=== PATIENT | male | born 1965 | race American Indian/Alaskan Native ===

== ENCOUNTER 2018-10-11 06:50 | Day surgery (SDC) | payer OTHER ==
[2018-10-11] MEDS ORDERED: ECOTRIN PO ONE (07:21)
[2018-10-11 07:41] LABS: Basophils # (Auto) 0.1 K/mm3 (0.0-0.1); Basophils % (Auto) 0.9 % (0.0-1.8); Eosinophils # (Auto) 0.1 K/mm3 (0.0-0.4); Eosinophils % (Auto) 1.1 % (0.0-4.3); Hematocrit 43.3 % (35.5-45.6); Hemoglobin 14.4 gm/dl (11.8-15.2); Lymphocytes % (Auto) 26.8 % (13.4-35.0); Mean Corpuscular HGB Conc 33 % (32-34); Mean Corpuscular Volume 83 fl (84-94); Monocytes # (Auto) 0.7 K/mm3 (0.0-0.8); Monocytes % (Auto) 10.1 % (0.0-7.3); Platelet Count 358 K/mm3 (140-440); Red Blood Count 5.25 M/mm3 (3.65-5.03); Red Cell Distribution Width 14.1 % (13.2-15.2)
[2018-10-11 07:47] LABS: INR 0.88 (0.87-1.13)
[2018-10-11 07:48] LABS: Partial Thromboplastin Time 30.3 Sec. (24.2-36.6)
[2018-10-11] MEDS ORDERED: CALAN ONE ×2 (07:48→08:57)
[2018-10-11] MEDS ORDERED: XYLOCAINE 2% INFILTRATI ONE ×2 (07:48→08:57)
[2018-10-11] MEDS ORDERED: HEPARIN 10,000 UNITS/10 ML ONE ×2 (07:48→08:56)
[2018-10-11] MEDS ORDERED: HEPARIN/NS 5000 UNIT/500ML(CATH LAB) 500 ML IR ONE (07:48)
[2018-10-11] MEDS ORDERED: SUBLIMAZE ONE ×2 (07:49→08:57)
[2018-10-11] MEDS ORDERED: VERSED ONE ×2 (07:49→08:56)
[2018-10-11] MEDS ORDERED: NITROGLYCERIN SYRINGE 0 ML ONE (07:49)
[2018-10-11 07:52] LABS: BUN/Creatinine Ratio 11; Blood Urea Nitrogen 11 mg/dL (9-20); Calcium 8.7 mg/dL (8.4-10.2); Hemolysis Index 221
[2018-10-11] MEDS: NACL 0.9% 500 ML 500 ML IV SCH ×2 (07:53→09:00)
[2018-10-11] MEDS ORDERED: HEPARIN/NS 5000 UNIT/500ML(CATH LAB) 1,000 ML IR ONE (08:56)
[2018-10-11] MEDS: NITROGLYCERIN SYRINGE 3 ML ONE ×2 (09:05→09:08)
--- NOTE | 2018-10-11 09:43 | Short Stay Summary ---
Short Stay Documentation Date of service: 10/11/18 - History H&P: obtained from office - Allergies and Medications Current Medications: Allergies No Known Allergies Allergy (Verified 10/11/18 07:20) Home Medications Medication Instructions Recorded Confirmed Last Taken Type Aspirin [Adult Low Dose Aspirin EC] 81 mg PO DAILY 10/11/18 10/11/18 10/10/18 History Atorvastatin [Lipitor Tab] 80 mg PO QHS 10/11/18 10/11/18 10/10/18 History ISOSORBIDE MONOnitrate [Imdur ER] 30 mg PO DAILY 10/11/18 10/11/18 10/10/18 History Metoprolol Xl [Metoprolol 25 mg PO QDAY 10/11/18 10/11/18 10/10/18 History SUCCINATE ER TAB] amLODIPine [Norvasc] 5 mg PO DAILY 10/11/18 10/11/18 10/10/18 History Active Medications Sodium Chloride (Nacl 0.9% 500 Ml) 500 mls @ 50 mls/hr IV DIRECT GIOVANNA Stop: 10/11/18 17:59 Last Admin: 10/11/18 09:00 Dose: 50 mls/hr Documented by: - Brief post op/procedure progress note Date of procedure: 10/11/18 Pre-op diagnosis: chest pain Post-op diagnosis: same Procedure: see report Anesthesia: local Estimated blood loss: none Pathology: none - Disposition Condition at discharge: Good Disposition: [id number] TO HOME OR SELFCARE - Discharge Diagnoses (1) Chest pain at rest Status: Chronic (2) Hypertension Status: Chronic Qualifiers: Hypertension type: essential hypertension Qualified Code(s): I10 - Essential (primary) hypertension (3) Abnormal EKG Status: Acute Short Stay Discharge Plan Activity: advance as tolerated Diet: regular, low fat, low cholesterol Wound: keep clean and dry Follow up with: JAMIE CHAVARRIA MD [Primary Care Provider] - 7 Days
--- NOTE | 2018-10-11 11:13 | Cardiac Catherization Report ---
LEFT HEART CATHETERIZATION ORDERING PHYSICIA: Humberto Villar MD CLINICAL INFORMATION: This is a 53-year-old gentleman with hypertension, hyperlipidemia who has been having on and off chest pain with new EKG changes. He is here for left heart catheterization. The patient was done with moderate sedation, 1 mg Versed, 50 mcg of fentanyl. Sedation started was 9:03 a.m., finished at 9:14 a.m., 11 minutes of moderate sedation supervised. PROCEDURES PERFORMED: Left heart catheterization performed via the right radial artery. Sterile technique, local anesthesia. A 6-Spanish radial sheath inserted. Left system engaged with JL3.5 catheter. Left main is large and patent, bifurcates into large LAD, wrapped around LAD, is patent. Diagonal 1 and diagonal 2 small caliber vessel. Ramus is a small to medium caliber vessel, patent. Circ is a large caliber vessel, patent, goes into large OM1 with an upper and lower branch are patent. AV groove portion of the circ a medium caliber vessel, patent. RCA engaged with JR4 catheter, has an anterior takeoff, large, dominant vessel, patent. PDA is patent. PLV patent. LV gram done in IRISH and CHAVEZ view shows normal LV function, LVEDP 20 mmHg, LV is 121 mmHg. Aortic is 117/71. No gradient across the aortic valve on pullback. 5-Spanish catheters, all taken over guidewire, 6-Spanish radial sheath was discontinued. Radial band applied. No hematoma, no bleeding. SUMMARY: 1. Normal coronaries, right dominant system, large epicardial vessels, normal LV function. 2. Noncardiac chest pain. Continue medical management. Discussed in detail with the patient and the patient's family. JOB# [id number] NAEL/DAVID MORAN
[2018-10-11 15:53] VITALS: BP 131/78
== END 2018-10-11 12:50 | disposition home or self-care (01) ==
LOC: CATHLABREC 06:50
PROVIDERS: ATTEND Internal Medicine
DX: R07.89 Other chest pain (principal); E78.01 Familial hypercholesterolemia; I10 Essential (primary) hypertension; I20.0 Unstable angina; Z79.899 Other long term (current) drug therapy; Z79.82 Long term (current) use of aspirin; Z79.01 Long term (current) use of anticoagulants
CPT/HCPCS: 36415; 80048; 85025; 85610; 85730; 93005; 93010; 93458; 99156; C1894; J1644; J2250; J3010; J7040; Q9967